=== PATIENT | female | born 1960 | race Caucasian/White ===

== ENCOUNTER 2017-05-24 06:41 | Day surgery (SDC) | payer OTHER ==
[2017-05-24] MEDS ORDERED: Sodium Chloride 0.9% 10 ML Syringe FLUSH PRN (07:00)
[2017-05-24] MEDS ORDERED: Lactated Ringers 1,000 ML IV SCH (07:00)
[2017-05-24] MEDS ORDERED: Propofol 200 MG/20 ML SDV IV ONE (08:00)
[2017-05-24] MEDS ORDERED: Midazolam 1 MG/ML 2 ML SDV IV ONE (08:00)
--- NOTE | 2017-05-24 08:34 | PCM.OPNOTE ---
- General Post-Op/Procedure Note Date of Surgery/Procedure: 05/24/17 ( ) Operative Procedure(s): c scope Findings: poor prep ext hemorrhoids Pre Op Diagnosis: screening Post-Op Diagnosis: ext hemorrhoids Anesthesia Technique: MAC Primary Surgeon: Claudio Argueta Anesthesia Provider: Becky Juarez Pathology: none Complications: None Condition: Good Free Text/Narrative:: see dictation
[2017-05-24 10:25] VITALS: BP 117/72
--- NOTE | 2017-05-24 12:21 | OR ---
DATE OF OPERATION: 05/24/2017 SURGEON: Claudio Argueta MD PROCEDURE PERFORMED: Colonoscopy. PREOPERATIVE DIAGNOSIS: Need for screening colonoscope. POSTOPERATIVE DIAGNOSIS: Normal colon with marginal prep. INDICATIONS FOR PROCEDURE: This is a 57-year-old white female, who presents for her initial screening colonoscopy. She was offered and accepted same. INTRAOPERATIVE FINDINGS: No gross abnormality was noted. However, the patient had a very marginal prep with over 2 L of effluent irrigated out during the entire procedure. DESCRIPTION OF OPERATION: After an excellent IV sedation was administered, digital rectal exam was performed. The patient has evidence of some external hemorrhoids, skin tags, otherwise the exams were unremarkable. Flexible colonoscope was inserted and advanced to the cecum. We had to aspirate and irrigate on her insertion reaching the cecum. The colon was slowly withdrawn again aspirating and irrigating. Following findings were noted. Ascending colon, unremarkable. Transverse colon, unremarkable. Descending colon, unremarkable. Sigmoid and rectum unremarkable. Given the quality of the patient's prep, I am going to recommend that she come back in 3 years. While we saw no growth with large polyps, there is a possibility due to some of the particulate matter, we were not able to entirely clear that we may have to, we may have missed something. /[id number] /MODL
== END 2017-05-24 09:42 | disposition home or self-care (01) ==
LOC: FB.SDS 06:41
PROVIDERS: ATTEND Surgery
DX: Z12.11 Encounter for screening for malignant neoplasm of colon (principal); K64.4 Residual hemorrhoidal skin tags; Z79.899 Other long term (current) drug therapy; Z88.0 Allergy status to penicillin; Z88.1 Allergy status to other antibiotic agents; Z88.8 Allergy status to other drugs, medicaments and biological substances; E78.00 Pure hypercholesterolemia, unspecified; K21.9 Gastro-esophageal reflux disease without esophagitis; E66.9 Obesity, unspecified; Z68.30 Body mass index [BMI] 30.0-30.9, adult; Z98.890 Other specified postprocedural states
CPT/HCPCS: 45378; J2250; J2704; J7120

== ENCOUNTER 2020-09-16 08:08 | Day surgery (SDC) | payer OTHER ==
[2020-09-16] MEDS ORDERED: Propofol 200 MG/20 ML SDV IV ONE (08:09)
[2020-09-16] MEDS ORDERED: Lactated Ringers 1,000 ML IV SCH (08:15)
[2020-09-16] MEDS ORDERED: Sodium Chloride 0.9% 10 ML Syringe FLUSH PRN (08:15)
--- NOTE | 2020-09-16 10:11 | PCM.OPNOTE ---
- General Post-Op/Procedure Note Date of Surgery/Procedure: 09/16/20 Operative Procedure(s): c scope Findings: ext hemorrhoids nl exam Pre Op Diagnosis: colon cancer screening Post-Op Diagnosis: nl exam ext hemorrhoids Anesthesia Technique: MAC Primary Surgeon: Claudio Argueta Anesthesia Provider: Rafael Alexander Pathology: none Complications: None Condition: Good Free Text/Narrative:: see dictation [id number]
--- NOTE | 2020-09-16 11:50 | OR ---
DATE OF OPERATION: 09/16/2020 SURGEON: Claudio Argueta MD PROCEDURE PERFORMED: Colonoscopy. PREOPERATIVE DIAGNOSIS: Colon cancer screening. POSTOPERATIVE DIAGNOSES: 1. External hemorrhoids. 2. Normal colonoscopic exam. INDICATIONS FOR PROCEDURE: Ms. Gutierrez is a 60-year-old white female. Three years ago, she had a colonoscopy. Prep was marginal. No abnormalities were noted, but we did recommend that she follow up at this time for a colonoscopy. She was offered and accepted same. DESCRIPTION OF OPERATION: After an excellent IV sedation was administered, digital rectal exam was performed. She does have some external hemorrhoids. Otherwise, no marked abnormality was noted. The flexible colonoscope was inserted and advanced to the cecum. Prep was excellent. At this time, the following findings were noted: Ascending colon unremarkable. Transverse colon unremarkable. Descending colon unremarkable. Sigmoid and rectum unremarkable. The colon was deflated as the scope was removed. The patient tolerated the procedure well. RECOMMENDATIONS: Repeat colonoscopy in 10 years. /[id number] /MODL
[2020-09-16 14:25] VITALS: BP 130/79; PULSE 73
== END 2020-09-16 11:03 | disposition home or self-care (01) ==
LOC: FB.SDS 08:08
PROVIDERS: ATTEND Surgery
DX: Z12.11 Encounter for screening for malignant neoplasm of colon (principal); K64.4 Residual hemorrhoidal skin tags; Z79.899 Other long term (current) drug therapy; Z88.0 Allergy status to penicillin; Z88.8 Allergy status to other drugs, medicaments and biological substances; Z98.890 Other specified postprocedural states
CPT/HCPCS: 00812-QZ; J2704; J7120